=== PATIENT | female | born 1970 | race Caucasian/White ===

== ENCOUNTER 2017-10-29 08:52 | Emergency (ER) ==
[2017-10-29 08:53] VITALS: BMI 31.1
[2017-10-29 09:03] VITALS: BP 173/105; TEMP 99.4
[2017-10-29] MEDS ORDERED: ZOFRAN 4 MG/2 ML IM STA ×2 (09:23→10:52)
[2017-10-29] MEDS ORDERED: MORPHINE 10 MG/ML SYRINGE IM STA (09:23)
[2017-10-29 09:46] LABS: BASOPHILS % (AUTO) 0.2 % (0.0-3.0); EOSINOPHILS % (AUTO) 0.2 % (0.0-7.0); HEMATOCRIT 41.5 % (37.0-47.0); HEMOGLOBIN 13.8 g/dl (12.0-16.0); IMMATURE GRANULOCYTE % (AUTO) 0.3 % (0.0-5.0); LYMPHOCYTES # (AUTO) 0.5 K/uL (0.60-3.4); LYMPHOCYTES % (AUTO) 8.3 (10.0-50.0); MEAN CORPUSCULAR HEMOGLOBIN 29.1 pg (27.0-31.0); MEAN CORPUSCULAR HGB CONC 33.3 (31.8-35.4); MEAN CORPUSCULAR VOLUME 87.4 fl (81.0-99.0); MONOCYTES # (AUTO) 0.3 K/uL (0.4-2.0); MONOCYTES % (AUTO) 4.8 (0-10); NEUTROPHILS # (AUTO) 5.4 K/ul (2.0-6.9); NEUTROPHILS % (AUTO) 86.2; PLATELET COUNT 191 10^3/uL (140-440); RED BLOOD COUNT 4.75 10^6/ul (4.20-5.40); WHITE BLOOD COUNT 6.23 K/ul (4.6-10.2)
[2017-10-29 10:08] LABS: ALBUMIN/GLOBULIN RATIO 0.75; BILIRUBIN,TOTAL 0.43 mg/dL (0.00-1.20); BUN/CREATININE RATIO 14.47; CALCIUM 8.6 mg/dL (8.2-10.2); CREATININE 0.76 mg/dL (0.60-1.30)
[2017-10-29 10:24] LABS: BILIRUBIN,URINE Negative (NEGATIVE); KETONES,URINE Negative (NEGATIVE); LEUKOCYTE ESTERASE ,URINE Negative (NEGATIVE); NITRITE,URINE Negative (NEGATIVE); PH,URINE 7.5 (5-9); PROTEIN,URINE Negative (NEGATIVE); URINE, BLOOD Trace-intact (NEGATIVE)
[2017-10-29 10:26] LABS: ADD URINE MICROSCOPIC YES
--- NOTE | 2017-10-29 10:38 | CT ---
EXAM: CT ABDOMEN AND PELVIS HISTORY: Right flank pain, dysuria for 3 weeks TECHNIQUE: CT abdomen and pelvis without intravenous contrast. Images were reconstructed using 3 mm section thickness. Reformations were prepared. COMPARISON: 08/07/2012 FINDINGS: There are a few calculi of the inferior right kidney largest at about 6 mm. No hydronephrosis. Defo rmity of the lower right renal cortex may represent scarring. Probably a few small cystic foci/cysts of the kidneys bilaterally although the kidneys are incompletely evaluated without the administratio n of intravenous contrast. These findings appear grossly stable since previous exam. The ureters ar e clear. Urinary bladder is unremarkable. No focal hepatic or splenic lesions. Gallbladder, pancreas and adrenal glands appear normal. Normal abdominal aorta. No gastric distension. The appendix, if present is not seen. Nonobstructive bowel gas pattern. No ventral abdominal wall hernia. Bones reveal degenerative disc and facet disease of the lower spine with hardware in place. Lung bases are free of acute infiltrate. No pneumoperitoneu m. IMPRESSION: 1. Right nephrolithiasis. No evidence of hydronephrosis or ureteral obstruction. 2. Degenerative disc and facet disease of the lower spine with hardware in place.
[2017-10-29] MEDS ORDERED: STADOL IM STA (10:52)
--- NOTE | 2017-10-29 10:55 | ED.PDOC ---
General ED Provider: Dr. MICHELLE JEAN Chief Complaint: Urinary Problem Stated Complaint: abdominal pain RLQ Time Seen by Physician: 09:00 (seen with staff ) Mode of Arrival: Wheelchair Information Source: Patient Exam Limitations: No limitations Primary Care Provider: ANIL ALEXANDRA Referred to ED by: Other Nursing and Triage Documentation Reviewed and Agree: Yes (2 rounds opf antibiotics cipro and bactrim has been compeleted ) GI Complaint Exam - Abdominal Pain Complaint/Exam Onset: Gradual Duration: 1 week Symptoms Are: Still present Timing: Intermittent Initial Severity: Moderate Location of Pain: LLQ, Suprapubic Character: Reports: Cramping Aggravating: Reports: None Alleviating: Reports: Medication Associated Signs and Symptoms: Reports: Back pain, Dysuria. Denies: Diaphoresis , Fever, Cough, Chest pain, Dizziness, Constipation, Blood in stool, Urinary frequency, Decreased urine output, Decreased appetite, Vaginal bleeding, Vaginal discharge, Nausea, Vomiting, Diarrhea, Sore throat, Decreased activity Related History: Reports: Similar episode (x 1week) AAA Risk Factors: Reports: None Ectopic Risk Factors: Reports: None Ovarian Torsion Risk Factors: Reports: None Surgical Obstruction Risk Factors: Reports: None Related Surgical History: Reports: None Patient Rh Status: Positive Review of Systems - Review Of Systems Constitutional: Reports: No symptoms Eyes: Reports: No symptoms Ears, Nose, Mouth, Throat: Reports: No symptoms Respiratory: Reports: No symptoms Cardiac: Reports: No symptoms GI: Reports: Abdominal pain (RLQ ) : Reports: No symptoms Musculoskeletal: Reports: Back pain (RIGHT) Skin: Reports: No symptoms Neurological: Reports: No symptoms Endocrine: Reports: No symptoms Hematologic/Lymphatic: Reports: No symptoms All Other Systems: Reviewed and Negative Past Medical History - Past Medical History Previously Healthy: No Endocrine: Reports: None Cardiovascular: Reports: Hypertension Respiratory: Reports: None Hematological: Reports: None Gastrointestinal: Reports: None Genitourinary: Reports: None Neuro/Psych: Reports: None Musculoskeletal: Reports: None Cancer: Reports: None Last Menstrual Period: 10/12 - Surgical History General Surgical History: Reports: Back Surgery, Other (ablation) - Family History Family History: Reports: None - Social History Smoking Status: Never smoker Hx Substance Use: No Alcohol Screening: Occasionally Physical Exam - Physical Exam Appearance: Ill-appearing Ill-appearing: Mild Pain Distress: Mild Eyes: JUN, EOMI, Conjunctiva clear ENT: Ears normal, Nose normal, Oropharynx normal Respiratory: Airway patent, Breath sounds clear, Breath sounds equal, Respirations nonlabored Cardiovascular: RRR, Pulses normal, No rub, No murmur GI/: Tender (RLQ/ FLANK PAIN) Musculoskeletal: Normal strength, ROM intact, No edema, No calf tenderness Skin: Warm, Dry, Normal color Neurological: Sensation intact, Motor intact, Reflexes intact, Cranial nerves intact, Alert, Oriented Psychiatric: Affect appropriate, Mood appropriate Critical Care Note - Critical Care Note Total Time (mins): 0 Course - Course Hematology/Chemistry: 10/29/17 09:35 10/29/17 09:35 Orders, Labs, Meds: Lab Review 10/29/17 10/29/17 10/29/17 09:35 09:35 10:00 WBC 6.23 RBC 4.75 Hgb 13.8 Hct 41.5 MCV 87.4 MCH 29.1 MCHC 33.3 RDW Coeff of Prieto 12.9 Plt Count 191 Immature Gran % (Auto) 0.3 Neut % (Auto) 86.2 Lymph % (Auto) 8.3 L [place] % (Auto) 4.8 Eos % (Auto) 0.2 Baso % (Auto) 0.2 Immature Gran # (Auto) 0.0 Neut # 5.4 Lymph # 0.5 L [place] # 0.3 L Eos # 0.0 Baso # 0.0 Sodium 136 Potassium 4.0 Chloride 104 Carbon Dioxide 26 Anion Gap 10.0 BUN 11 Creatinine 0.76 Estimated GFR (MDRD) 82.00 BUN/Creatinine Ratio 14.47 Glucose 120 H Calcium 8.6 Total Bilirubin 0.43 AST 18 ALT 27 Alkaline Phosphatase 80 Total Protein 7.0 Albumin 3.0 L Globulin 4.0 Albumin/Globulin Ratio 0.75 Urine Color Yellow Urine Clarity Slightly Urine pH 7.5 Ur Specific [place] 1.015 Urine Protein Negative Urine Glucose (UA) Negative Urine Ketones Negative Urine Blood Trace-intact Urine Nitrite Negative Urine Bilirubin Negative Urine Urobilinogen 0.2 Ur Leukocyte Esterase Negative Urine Microscopic RBC 2-5 Ur Squamous Epith Cells 20-30 Orders Category Date Time Status CBC W/ AUTO DIFF Stat LAB 10/29/17 09:35 Completed COMPREHENSIVE METABOLIC PANEL Stat LAB 10/29/17 09:35 Completed URINALYSIS C & S IF INDICATED Stat LAB 10/29/17 10:00 Completed Butorphanol Tartrate [Stadol] MEDS 10/29/17 10:52 Discontinued 2 mg IM ONCE STA Morphine Sulfate [Morphine 10 mg/ml Syringe] MEDS 10/29/17 09:23 Discontinued 4 mg IM ONCE STA Ondansetron HCl/Pf [Zofran 4 mg/2 ml] MEDS 10/29/17 09:23 Discontinued 4 mg IM ONCE STA Ondansetron HCl/Pf [Zofran 4 mg/2 ml] MEDS 10/29/17 10:52 Discontinued 4 mg IM ONCE STA CT ABD/PEL WO RENAL STONE PROT Stat RADS 10/29/17 09:22 Completed U/S PELVIS JORGE VAGINAL/NON OB Stat RADS 10/29/17 10:56 Ordered Medications Discontinued Medications Generic Name Dose Route Start Last Admin Trade Name Freq PRN Reason Stop Dose Admin Butorphanol Tartrate 2 mg 10/29/17 10:52 Stadol IM 10/29/17 10:53 ONCE STA Morphine Sulfate 4 mg 10/29/17 09:23 10/29/17 10:05 Morphine 10 Mg/Ml Syringe IM 10/29/17 09:24 Not Given ONCE STA Ondansetron HCl 4 mg 10/29/17 09:23 10/29/17 10:06 Zofran 4 Mg/2 Ml IM 10/29/17 09:24 Not Given ONCE STA Ondansetron HCl 4 mg 10/29/17 10:52 Zofran 4 Mg/2 Ml IM 10/29/17 10:53 ONCE STA Vital Signs: Temp Pulse Resp BP Pulse Ox 10/29/17 08:54 99.4 F 98 H 20 173/105 H 98 Departure - Departure Time of Disposition: 12:45 Disposition: HOME SELF-CARE Discharge Problem: Right nephrolithiasis Instructions: Acute Abdominal Pain (ED), Flank Pain (ED) Condition: Good Pt referred to PMD for follow-up: Yes Additional Instructions: Please call your Family Physician as soon as possible to schedule a follow-up appointment. Allergies/Adverse Reactions: Allergies aloe Adverse Reaction (Verified 08/09/16 22:25) aspartame Adverse Reaction (Verified 08/09/16 22:25) betamethasone Adverse Reaction (Verified 10/29/17 09:04) cefaclor [From Ceclor] Adverse Reaction (Verified 08/09/16 22:25) erythromycin base Adverse Reaction (Verified 08/09/16 22:25) latex Adverse Reaction (Verified 08/09/16 22:25) methylprednisolone Adverse Reaction (Verified 10/29/17 09:04) morphine Adverse Reaction (Verified 08/09/16 22:25) nitrofurantoin [From Macrobid] Adverse Reaction (Verified 08/09/16 22:25) nitrofurantoin macrocrystal [From Macrobid] Adverse Reaction (Verified 08/09/16 22:25) Penicillins Adverse Reaction (Verified 08/09/16 22:25) povidone-iodine [From Betadine] Adverse Reaction (Verified 08/09/16 22:25) prednisone Adverse Reaction (Verified 10/29/17 09:04) soap [From Betadine] Adverse Reaction (Verified 08/09/16 22:25) tramadol [From Ultram] Adverse Reaction (Verified 08/09/16 22:25) steroids Adverse Reaction (Uncoded 08/09/16 22:25) Home Medications: Ambulatory Orders Cyclobenzaprine HCl [Flexeril] 10 mg PO BID 10/23/15 Gabapentin [Neurontin] 100 mg PO TID 10/23/15 Hydrocodone Bit/Acetaminophen [[place] 5-325] 1 each PO TID 10/23/15 Celecoxib [Celebrex] 100 mg PO BIDWM 08/09/16 Clonidine 0.3 mg [Catapres TTS-3] 1 patch TD WEEKLY 08/09/16 Gluc Roberts/Chondro Roberts A/Vit C/Mn [Glucosamine 1,500 Complex Cp] 1 each PO BID 08/09 Diazepam [Valium] 5 mg PO BID 10/29/17 Metoprolol Tartrate [Lopressor] 50 mg PO EVERY OTHER DAY 10/29/17 Disposition Discussed With: Patient, Family
== END 2017-10-29 12:20 | disposition home or self-care (01) ==
LOC: ED 08:52
DX: N20.0 Calculus of kidney (principal); I10 Essential (primary) hypertension; Z79.899 Other long term (current) drug therapy
CPT/HCPCS: 36415; 74176; 80053; 81001; 85025; 96372; 99285

== ENCOUNTER 2017-11-03 17:44 | Outpatient (CLI) ==
[2017-11-03] MEDS ORDERED: URO-JET MUCOUSMEMB STA (17:51)
[2017-11-03 18:00] VITALS: BP 166/121; TEMP 98
[2017-11-03 18:15] LABS: BILIRUBIN,URINE Negative (NEGATIVE); KETONES,URINE Negative (NEGATIVE); LEUKOCYTE ESTERASE ,URINE Negative (NEGATIVE); NITRITE,URINE Negative (NEGATIVE); PROTEIN,URINE Negative (NEGATIVE); URINE, BLOOD Negative (NEGATIVE)
[2017-11-03 18:19] LABS: ADD URINE MICROSCOPIC NO
== END 2017-11-03 17:45 | disposition home or self-care (01) ==
LOC: OUTPT 17:44
PROVIDERS: ATTEND Family Medicine
DX: N39.0 Urinary tract infection, site not specified (principal)
CPT/HCPCS: 81001; 99211

== ENCOUNTER 2018-03-04 08:50 | Outpatient (CLI) | payer OTHER ==
--- NOTE | 2018-03-04 10:11 | CT ---
EXAM: CT Pelvis without contrast. HISTORY: Initial presentation for low back pain radiating to the legs following a fall. COMPARISON: 10/29/2017. TECHNIQUE: Multiple axial images of the pelvis were obtained without intravenous contrast. Images w ere reformatted in the coronal and sagittal plane. FINDINGS: Please note that evaluation of the pelvic soft tissue structures is limited due to lack of intravenous contrast. Posterior fusion and laminectomy changes of the lumbosacral spine are incompletely imaged. Refer to lumbar spine CT report for details. Sacrum is intact without evidence for fracture. Osteoarthritis of the sacroiliac joints noted. There is no evidence for proximal femoral or obturator ring fracture . Hip joint spaces are maintained. No localized soft tissue abnormality seen. Clips seen along the anterior pelvic wall on the left. IMPRESSION: No fracture or dislocation
--- NOTE | 2018-03-04 10:14 | CT ---
EXAM: CT lumbar spine without contrast HISTORY: Fell, pain in lower back and going down both legs COMPARISON: None TECHNIQUE: CT lumbar spine performed without intravenous contrast. Coronal and sagittal reformatted images obtained. FINDINGS: Patient status post posterior spinal fusion L4-L5-S1. Anterior spinal fusion hardware at L5. Interbody spacers L4-L5 and L5-S1. Hardware appears intact. Vertebral bodies normal in height. No fracture. No subluxation. Multilevel marginal osteophytes. Sacroiliac joints intact with mild degenerative change. Minimal low attenuation in the posterior subcutaneous tissues, likely postoper ative fibrosis. There are right renal calculi measuring up to 8 mm. Scarring in the right inferior kidney likely relates to remote insult. Aorta normal in caliber. T12-L1: No central canal or neural foraminal narrowing. L1-L2: No central canal or neural foraminal narrowing. L2-L3: No central canal or neural foraminal narrowing. L3-L4: Posterior disc osteophyte complex and facet arthrosis causing mild central canal and moderate bilateral neural foraminal narrowing. L4-L5: Postoperative changes with laminectomy. Central canal partially obscured secondary to streak artifact. No definite central canal or neural foraminal narrowing. L5-S1: Postoperative changes with laminectomy. Central canal partially obscured secondary to streak artifact. No definite central canal or neural foraminal narrowing IMPRESSION: 1. Spinal fusion changes from L5-S1 as described. No fracture or subluxation. Hardware appears int act. 2. Chronic discogenic degenerative disease and facet arthrosis. Please see segmental analysis. 3. Right nephrolithiasis. Right renal scarring, likely relates to remote insult.
== END 2018-03-04 08:51 | disposition home or self-care (01) ==
LOC: RAD 08:50
PROVIDERS: ATTEND Family Medicine
DX: M54.5 Low back pain (principal)

== ENCOUNTER 2018-05-10 01:16 | Emergency (ER) ==
[2018-05-10] MEDS ORDERED: TORADOL IM STA (01:17)
--- NOTE | 2018-05-10 01:20 | ED.PDOC ---
General ED Provider: Dr. DI KIM Chief Complaint: Wrist Pain/Injury Stated Complaint: Fall with injury to the right wrist and forearm Time Seen by Physician: 01:20 Information Source: Patient, Family Primary Care Provider: ANIL ALEXANDRA Nursing and Triage Documentation Reviewed and Agree: Yes Reviewed sepsis parameters & appropriate labs ordered?: No System Inflammatory Response Syndrome: Not Applicable Sepsis Protocol: For patient's 13 years and over: Temp is 96.8 and below OR 101 and greater Pulse >90 BPM Resp >20/minute Acutely Altered Mental Status Are patient's symptoms suggestive of a new infection, such as: -Pneumonia -Skin, Soft Tissue -Endocarditis -UTI -Bone, Joint Infection -Implantable Device -Acute Abdominal Infection -Wound Infection -Meningitis -Blood Stream Catheter Infection -Unknown Review of Systems - Review Of Systems Constitutional: Reports: No symptoms Eyes: Reports: No symptoms Ears, Nose, Mouth, Throat: Reports: No symptoms Respiratory: Reports: No symptoms Cardiac: Reports: No symptoms GI: Reports: No symptoms : Reports: No symptoms Musculoskeletal: Reports: Joint pain, Muscle pain Skin: Reports: No symptoms Neurological: Reports: No symptoms Endocrine: Reports: No symptoms Hematologic/Lymphatic: Reports: No symptoms All Other Systems: Reviewed and Negative Past Medical History - Past Medical History Previously Healthy: No Endocrine: Reports: None Cardiovascular: Reports: Hypertension Respiratory: Reports: None Hematological: Reports: None Gastrointestinal: Reports: None Genitourinary: Reports: None Neuro/Psych: Reports: None Musculoskeletal: Reports: None Cancer: Reports: None - Surgical History General Surgical History: Reports: Back Surgery, Other (ablation) - Family History Family History: Reports: None - Social History Smoking Status: Never smoker Hx Substance Use: No Alcohol Screening: Occasionally Physical Exam - Physical Exam Appearance: Well-appearing, No pain distress, Well-nourished Eyes: JUN, EOMI, Conjunctiva clear ENT: Ears normal, Nose normal, Oropharynx normal Respiratory: Airway patent, Breath sounds clear, Breath sounds equal, Respirations nonlabored Cardiovascular: RRR, Pulses normal, No rub, No murmur GI/: Soft, Nontender, No masses, Bowel sounds normal, No Organomegaly Musculoskeletal: Limited ROM Skin: Warm, Dry Neurological: Sensation intact, Motor intact, Reflexes intact, Cranial nerves intact, Alert, Oriented Psychiatric: Anxious Interpretation - Radiology Interpretation Radiology Interpretation By: ED Physician Radiology Results: Negative Exam Interpreted: Other (right wrist and forearm ) Re-Evaluation - Re-Evaluation Time of Re-Evaluation: 02:10 Status: Improved Pain Level: better Critical Care Note - Critical Care Note Total Time (mins): 0 Course - Course Orders, Labs, Meds: Orders Category Date Time Status Diphth,Pertuss(Acell),Tet Vac [Boostrix] MEDS 05/10/18 01:50 Discontinued 0.5 ml IM .ONCE ONE Ketorolac Tromethamine [Toradol] MEDS 05/10/18 01:17 Discontinued 60 mg IM ONCE STA FOREARM, RIGHT 2 VIEWS Stat RADS 05/10/18 01:17 Completed WRIST, RIGHT 3 VIEWS Stat RADS 05/10/18 01:17 Completed Medications Discontinued Medications Generic Name Dose Route Start Last Admin Trade Name Freq PRN Reason Stop Dose Admin Diphtheria/Pertussis/Tetanus Vacc 0.5 ml 05/10/18 01:50 05/10/18 02:23 Boostrix IM 05/10/18 01:51 0.5 ml .ONCE ONE Administration Ketorolac Tromethamine 60 mg 05/10/18 01:17 05/10/18 01:45 Toradol IM 05/10/18 01:18 60 mg ONCE STA Administration Vital Signs: Temp Pulse Resp BP Pulse Ox 05/10/18 02:15 166/95 H 05/10/18 01:42 97.7 F 104 H 20 174/104 H 95 Departure - Departure Time of Disposition: 02:10 Disposition: HOME SELF-CARE Discharge Problem: Forearm sprain Qualifiers: Encounter type: initial encounter Laterality: right Qualified Code(s): S63.501A - Unspecified sprain of right wrist, initial encounter Wrist strain Qualifiers: Encounter type: initial encounter Laterality: right Qualified Code(s): S66.911A - Strain of unspecified muscle, fascia and tendon at wrist and hand level, right hand, initial encounter Instructions: Wrist Injury (ED), Sprain (ED) Condition: Stable Pt referred to PMD for follow-up: Yes IPMP verified?: No Additional Instructions: use wrist splint for comfort Follow up with PCP YOU RECEIVED BOOSTRIX (TDAP) IT WILL BE VALID FOR 7-10 YEARS. Allergies/Adverse Reactions: Allergies aloe Adverse Reaction (Verified 08/09/16 22:25) aspartame Adverse Reaction (Verified 08/09/16 22:25) betamethasone Adverse Reaction (Verified 10/29/17 09:04) cefaclor [From Ceclor] Adverse Reaction (Verified 08/09/16 22:25) erythromycin base Adverse Reaction (Verified 08/09/16 22:25) latex Adverse Reaction (Verified 08/09/16 22:25) methylprednisolone Adverse Reaction (Verified 10/29/17 09:04) morphine Adverse Reaction (Verified 08/09/16 22:25) nitrofurantoin [From Macrobid] Adverse Reaction (Verified 08/09/16 22:25) nitrofurantoin macrocrystal [From Macrobid] Adverse Reaction (Verified 08/09/16 22:25) Penicillins Adverse Reaction (Verified 08/09/16 22:25) povidone-iodine [From Betadine] Adverse Reaction (Verified 08/09/16 22:25) prednisone Adverse Reaction (Verified 10/29/17 09:04) soap [From Betadine] Adverse Reaction (Verified 08/09/16 22:25) tramadol [From Ultram] Adverse Reaction (Verified 08/09/16 22:25) ARTIFICIAL SWEETENERS Adverse Reaction (Uncoded 05/10/18 01:38) Anaphylaxis steroids Adverse Reaction (Uncoded 08/09/16 22:25) Home Medications: Ambulatory Orders Cyclobenzaprine HCl [Flexeril] 10 mg PO TID 10/23/15 Gabapentin [Neurontin] 100 mg PO TID 10/23/15 Hydrocodone Bit/Acetaminophen [[place] 5-325] 1 each PO TID 10/23/15 Celecoxib [Celebrex] 100 mg PO BIDWM 08/09/16 Clonidine 0.3 mg [Catapres TTS-3] 1 patch TD WEEKLY 08/09/16 Gluc Roberts/Chondro Roberts A/Vit C/Mn [Glucosamine 1,500 Complex Cp] 1 each PO BID 08/09 Metoprolol Tartrate [Lopressor] 50 mg PO EVERY OTHER DAY PRN 10/29/17 Celecoxib [Celebrex] 50 mg PO BID 05/10/18 Diazepam [Valium] 2 mg PO TID 05/10/18 Duloxetine HCl 20 mg PO DIRECTED 05/10/18 Disposition Discussed With: Patient, Family
[2018-05-10] MEDS ORDERED: BOOSTRIX IM ONE (01:50)
[2018-05-10 01:55] VITALS: TEMP 97.7; BMI 32.8
--- NOTE | 2018-05-10 02:29 | DI ---
EXAM: Three views of the right wrist. HISTORY: Pain and injury. FINDINGS: The bones are intact with no evidence of fracture. The joint spaces are maintained. No sof t tissue abnormality. Impression: Negative right wrist.
[2018-05-10 04:25] VITALS: BP 166/95
--- NOTE | 2018-05-10 07:05 | DI ---
EXAM: Radiographs, right forearm HISTORY: Initial presentation for right forearm trauma. COMPARISON: None available. TECHNIQUE: Two views. FINDINGS: Bone mineralization is normal. There is no fracture or dislocation. Mild osteoarthritis of the elbow noted. No focal soft tissue abnormality is seen. IMPRESSION: No fracture or dislocation.
== END 2018-05-10 02:26 | disposition home or self-care (01) ==
LOC: ED 01:16
DX: S63.501A Unspecified sprain of right wrist, initial encounter (principal); S66.911A Strain of unspecified muscle, fascia and tendon at wrist and hand level, right hand, initial encounter; W19.XXXA Unspecified fall, initial encounter; I10 Essential (primary) hypertension
CPT/HCPCS: 90471; 90715; 96372; 99283

== ENCOUNTER 2018-09-30 15:29 | Outpatient (CLI) ==
--- NOTE | 2018-09-30 16:12 | CT ---
EXAM: CT of the head without contrast History: Head trauma. Technique: Multiplanar CT images through the head were obtained without the administration of IV con trast Findings: The visualized paranasal sinuses and mastoid air cells are clear in general. No acute vira varial abnormalities. Intracranially the ventricular and cisternal spaces are normal in size, shape and configuration for a patient of this age. No dominant mass or midline shift. No hydrocephalous. No acute intracranial hemorrhage or abnormal extraaxial fluid collections. Impression: No acute intracranial process
== END 2018-09-30 15:30 | disposition home or self-care (01) ==
LOC: RAD 15:29
PROVIDERS: ATTEND Family Medicine
DX: S09.90XA Unspecified injury of head, initial encounter (principal)